=== PATIENT | female | born 2000 | race Caucasian/White ===

== ENCOUNTER → 2022-08-07 | Outpatient (CLI) | LOC: M SOG 08:40 | PROVIDERS: ATTEND Physician Assistant | DX: M25.532 Pain in left wrist (principal) ==

== ENCOUNTER → 2022-10-12 | Outpatient (REF) | payer BC ==
[2022-10-12 13:50] LABS: FOLLICLE STIMULATING HORMONE 7.8 mIU/ML; LUTEINIZING HORMONE 9.5 mIU/ML; PROLACTIN 9.76 NG/ML
[2022-10-13 19:07] LABS: TESTOSTERONE FREE (DIRECT) 1.5 pg/mL (0.0-4.2)
== END ==
LOC: M LAB REF 12:29
PROVIDERS: ATTEND Internal Medicine
DX: E66.01 Morbid (severe) obesity due to excess calories (principal); N92.6 Irregular menstruation, unspecified; R73.03 Prediabetes

== ENCOUNTER → 2022-10-27 | Outpatient (CLI) | payer BC | LOC: M RAD 15:50 | PROVIDERS: ATTEND Internal Medicine | DX: E28.2 Polycystic ovarian syndrome (principal) ==